=== PATIENT | male | born 1950 | race Caucasian/White ===

== ENCOUNTER 2022-04-20 17:00 | Emergency (ER) | payer MEDICARE, MEDICAID, SELFPAY ==
--- NOTE | ~2022-04-20 | XR_ITS ---
EXAMINATION: XR HAND, LEFT CLINICAL INFORMATION: Laceration COMPARISON: None TECHNIQUE: PA, lateral, and oblique views of the left hand. XR/XR hand LT min 3V FINDINGS/IMPRESSION: There artery destructive erosive changes in the fifth digit PIP joint, these changes appear chronic, it is however difficult to exclude fracture, correlate clinically. There are degenerative changes throughout the interphalangeal joints and MCP joints. There are focal osteophytes at the second and third metacarpal heads. Severe degenerative change at the first carpometacarpal joint with also subluxation of the proximal phalanx, this appearance appears chronic. Postsurgical changes in the distal wrist which are incompletely visualized.
[2022-04-20 17:18] VITALS: BP 169/92; PULSE 63; RESP 18; TEMP 36.4; O2SAT 98; BMI 23.6
--- NOTE | 2022-04-20 20:23 | ED_ITS ---
HPI - Extremity Problem General Chief complaint: Extremity Injury, Upper Stated complaint: Hand lac Time Seen by Provider: 04/20/22 19:01 Source: patient Mode of arrival: ambulatory Limitations: no limitations History of Present Illness HPI Narrative: 71-year-old male presents to the emergency department laceration to the left thumb status post cutting himself with a metal saw while working on a mailbox just prior to his arrival. Patient anticoagulated on aspirin. No numbness or tingling. Patient able to move his finger, no issues. No wrist drop bilaterally. Unsure of what is tetanus Related Data Previous Rx's Medication Instructions Recorded cephalexin 500 mg tablet 500 mg PO Q6H 10 days #40 tabs 04/20/22 doxycycline hyclate 100 mg capsule 100 mg PO BID 10 days #20 caps 04/20/22 Allergies Allergy/AdvReac Type Severity Reaction Status Date / Time ibuprofen [From Motrin] AdvReac Unknown Verified 04/20/22 17:18 Review of Systems Review of Systems: Constitutional : No Fever, No Chills, Cardiovascular : No Chest Pain, No SOB Respiratory : No Dyspnea Gastrointestinal : No abdominal pain Musculoskeletal : No Joint Swelling Skin : No rash, positive skin laceration Neuro : No Weakness, No Numbness Psych : No SI/HI Yes all other systems are reviewed and are negative [facility] Past Medical History Attestation statement: The following information was validated with the patient. Source: old records reviewed and nursing notes reviewed Social History Social History Advance Directives: No Advance Directives Information Provided: No Physical Exam Vital Signs: Vital Signs: Last Vital Signs Temp 97.6 F 04/20/22 17:18 Pulse 63 04/20/22 17:18 Resp 18 04/20/22 17:18 BP 169/92 H 04/20/22 17:18 Pulse Ox 98 04/20/22 17:18 O2 Del Method 04/20/22 17:18 BMI result Body Mass Index 23.6 VSS Appearance: Alert.? Oriented X3.? No acute distress.? Head: Normocephalic, atraumatic, no step-offs or deformities Eyes: Pupils equal, round and reactive to light.? ENT: Pharynx normal.? Neck: Normal inspection.? Neck supple.? CVS: Normal heart rate and rhythm.? Pulses normal.? Respiratory: No respiratory distress.? Breath sounds normal.? Abdomen: Soft and nontender.? Skin: Skin warm and dry.? Normal skin color.? Normal skin turgor.? Extremities: No lower extremity edema.? No calf ttp. 5/5 strength to bilateral upper and lower extremities 5/5 strength to b/l thumbs, sensory and motor intact, capillary refill to all upper extremity digits less than 2 seconds 2+ radial pulses equal bilateral. Back: No midline tenderness, no C-spine tenderness, full range of motion, no CVA tenderness bilaterally Neuro: Oriented X 3.? No motor deficit.? No sensory deficit. CN 2-12 intact Course Reevaluation(s) Reevaluation #1: X-ray of the left hand with no acute findings. Degenerative changes noted. I explained to patient that I am unable to rule out ligament or tendon injury therefore he will likely require an MRI. Laceration was successfully sutured using 2 internal sutures, and 6 external sutures. Patient tolerated procedure well no complications. After suturing neurovascular status remains intact. Advised him to return new or worsening symptoms and follow-up with orthopedic hand. Educated on worrisome signs and symptoms and outlined on discharge. Time: 20:39 MDM - Extremity (Nontraumatic) MDM Narrative Medical decision making narrative: 2024 71-year-old male presents with laceration to left hand/thumb area. Status post cutting himself with a saw while working on a mailbox. denies numbness or tingling, unknown of last tetanus shot. Physical examination significant for laceration images attached. NV intact. No wrist drop b/l. Plan at this time is x-ray, sutures. will rule out fractures or dislocations. Medical Records Attestation: I reviewed the patient's medical records. Lab Data Attestation: I reviewed the patient's lab results. Procedures Laceration Laceration 1: Site: hand Side (If applicable): left Size (cm): 6 Description: linear Depth: simple, single layer and involves muscle layer Local Anesthetic: lidocaine 2% Amount of anesthesia used (mL): 5 Pre-repair: wound explored and irrigated extensively Skin layer closed with: vicryl Size (cm): 5-0 Number of sutures: 6 Technique: simple, interrupted Subcutaneous layer closed with: chromic gut Size: 4-0 Number of sutures: 2 Technique: simple, interrupted Critical Care Time Critical Care Time Critical Care Time: No Discharge Plan Discharge Clinical Impression: Laceration of finger of left hand Patient Disposition: Home, Self-Care Additional Instructions: Take your medications as prescribed. If you were prescribed antibiotics today, it is important that you take your medication to their entirety, do not skip any doses, do not finish them early. Follow-up with your primary care provider this week. Return to the emergency department with new or worsening symptoms. 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 There are degenerative changes throughout the interphalangeal joints and MCP joints. There are focal osteophytes at the second and third metacarpal heads. Severe degenerative change at the first carpometacarpal joint with also subluxation of the proximal phalanx, this appearance appears chronic. Postsurgical changes in the distal wrist which are incompletely visualized. I am unable to rule out ligament or tendon injury, for this reason you will likely require an MRI. You should see a hand surgeon. Please follow-up with your PCP as soon as possible return for suture removal in 7-10 days. Return to the emergency department review of numbness, tingling, loss of sensation, you feel like you can not move your wrist. Prescriptions: New cephalexin 500 mg tablet 500 mg PO Q6H 10 Days Qty: 40 0RF doxycycline hyclate 100 mg capsule 100 mg PO BID 10 Days Qty: 20 0RF Referrals: Colin Raymond MD [Primary Care Provider] - 2 days Stand Alone Forms: Work/School Release
[2022-04-20] MEDS: Diphth,Pertus(ACell),Tet Adult 0.5 ML SYRINGE IM (20:48)
[2022-04-20] MEDS: Lidocaine HCl 1 % MPF 5 ML VIAL SUBCUT (20:49)
== END 2022-04-20 21:02 | disposition home or self-care (01) ==
PROVIDERS: Emergency Provider Emergency Medicine; PCP Family Medicine
DX: S61.412A Laceration without foreign body of left hand, initial encounter (principal); W29.3XXA Contact with powered garden and outdoor hand tools and machinery, initial encounter; Y93.9 Activity, unspecified; Y92.9 Unspecified place or not applicable; Y99.9 Unspecified external cause status
CPT/HCPCS: 12042; 73130; 90471; 90715; 99283; 99284